=== PATIENT | male | born 1995 | race Caucasian/White ===

== ENCOUNTER → 2017-02-17 | Outpatient (CLI) | payer BC ==
--- NOTE | 2017-02-17 11:51 | DIAGNOSTIC IMAGING REPORT ---
RIGHT ANKLE MIN 3 VIEWS ROUTINE, RIGHT FOOT MIN 3 VIEWS ROUTINE HISTORY: 22 years-old Male RIGHT ANKLE PAIN Right acute right foot and ankle pain status post twisting injury. COMPARISON: None available TECHNIQUE: 3 views of the right ankle and 3 views of the right foot FINDINGS: ANKLE: There is no acute fracture, dislocation or osteochondral defect. No significant degenerative changes. Mild soft tissue swelling is seen circumferentially about the ankle. Negative for opaque foreign body. FOOT: Subcortical cystic changes noted involving the distal medial aspect of the first proximal phalanx. No acute fracture, dislocation or significant degenerative changes. Negative for opaque foreign body. IMPRESSION: 1. Mild soft tissue swelling about the ankle without acute right foot or ankle fracture or dislocation. 2. Subcortical cystic change involves the first distal phalanx without significant joint space narrowing of the DIP joint. The above report was generated using voice recognition software. It may contain grammatical, syntax or spelling errors. Electronically signed by: Darron Sosa M.D. 02/17/2017 11:50 AM Dictated Date/Time: 02/17/2017 11:46 AM
== END | disposition home or self-care (01) ==
LOC: C.RAD 11:25
PROVIDERS: ATTEND Physician Assistant Medical
DX: M79.671 Pain in right foot (principal); M25.571 Pain in right ankle and joints of right foot